=== PATIENT | female | born 1940 | race Caucasian/White ===

== ENCOUNTER 2020-11-05 12:50 | Outpatient (CLI) | payer MEDICARE, OTHER | END 2020-11-05 12:51 | disposition home or self-care (01) | LOC: BICCT 12:50 | PROVIDERS: ATTEND Psychiatry & Neurology Neurology | DX: F03.90 Unspecified dementia, unspecified severity, without behavioral disturbance, psychotic disturbance, mood disturbance, and anxiety (principal) | CPT/HCPCS: 70450 ==

== ENCOUNTER 2020-12-02 12:07 | Day surgery (SDC) | payer MEDICARE, OTHER ==
[2020-12-02] MEDS ORDERED: Sodium Bicarbonate 2.5 MEQ/5 ML VIAL ONE (13:02)
[2020-12-02] MEDS ORDERED: Lidocaine 1% PF 5 ML VIAL ONE (13:02)
[2020-12-02 13:20] VITALS: BP 154/64; TEMP 98.3
== END 2020-12-02 14:00 | disposition home or self-care (01) ==
LOC: ULT 12:07
PROVIDERS: ATTEND Pediatrics Pediatric Endocrinology
PROC: 0GBG3ZX Excision of Left Thyroid Gland Lobe, Percutaneous Approach, Diagnostic (ICD-10-PCS; principal; 2020-12-02)
DX: E04.2 Nontoxic multinodular goiter (principal); F03.90 Unspecified dementia, unspecified severity, without behavioral disturbance, psychotic disturbance, mood disturbance, and anxiety; I10 Essential (primary) hypertension; E78.5 Hyperlipidemia, unspecified; K21.9 Gastro-esophageal reflux disease without esophagitis; Z79.899 Other long term (current) drug therapy; Z87.891 Personal history of nicotine dependence; Z88.5 Allergy status to narcotic agent
CPT/HCPCS: 60100; 76942; 88173